=== PATIENT | female | born 1980 | race Caucasian/White ===

== ENCOUNTER → 2016-11-06 | Emergency (ER) | payer OTHER ==
[~2016-11-06] VITALS: Ht 170.1 cm; Wt 113.4 kg
[~2016-11-06] MED LIST: AORACILLIN B500 MG PO; ATARAX25 MG PO; BACTRIM DS 8001 TA1 PO; BENICAR40 MG PO; BUSPAR5 MG PO; CALCIUM1 CAP; CELEXA20 MG PO; CLARITIN10 MG PO; COLACE100 MG PO; FEOSOL45 MG; HYDROCODONE BIT1 T11 PO; IRON325 M1 PO; LASIX20 MG PO; LEVAQUIN750 M1 PO; LEXAPRO20 MG PO; LYSINYL500 MG PO; MEDROL DOSEPAK4 MG PO; MOTRIN800 MG PO; MULTIVITAMIN1 TA1 PO; NAPROSYN500 MG PO; PERCOCET 325 MG1 TA2 PO; PREDNISONE10 MG PO; PRENATAL1 TA1; PRILOSEC20 MG PO; PROAIR HFA8.5 GM INH; ROBITUSSIN AC 110 ML PO; TAGAMET300 MG PO; TESSALON PERLE100 M1 PO; ULTRAM50 MG PO; VITAMIN B COMPL1 CAP PO; ZITHROMAX250 MG PO
== END ==
LOC: ED 11:25
DX: S46.911A Strain of unspecified muscle, fascia and tendon at shoulder and upper arm level, right arm, initial encounter (principal); S80.01XA Contusion of right knee, initial encounter; F17.200 Nicotine dependence, unspecified, uncomplicated; Z88.0 Allergy status to penicillin; Z79.899 Other long term (current) drug therapy; W18.09XA Striking against other object with subsequent fall, initial encounter; Y93.89 Activity, other specified; Y92.89 Other specified places as the place of occurrence of the external cause; Y99.8 Other external cause status

== ENCOUNTER 2017-05-21 08:42 | Emergency (ER) | payer OTHER ==
[~2017-05-21] VITALS: Wt 108.9 kg
[2017-05-21] MEDS ORDERED: PREDNISONE50 MG PO (08:53)
[2017-05-21] MEDS ORDERED: AVPAK AZITHROM250 MG PO (08:53)
== END 2017-05-21 08:54 | disposition home or self-care (01) ==
LOC: ED 08:42
DX: J44.1 Chronic obstructive pulmonary disease with (acute) exacerbation (principal); R21 Rash and other nonspecific skin eruption; E66.9 Obesity, unspecified; F17.200 Nicotine dependence, unspecified, uncomplicated; Z79.899 Other long term (current) drug therapy; Z88.0 Allergy status to penicillin; Z87.01 Personal history of pneumonia (recurrent)

== ENCOUNTER 2017-06-06 12:32 | Emergency (ER) | payer OTHER ==
[~2017-06-06] VITALS: Ht 170.1 cm; Wt 108.9 kg
[~2017-06-06 12:32] MED LIST changes: +AVPAK AZITHROM250 MG PO; +PREDNISONE50 MG PO
[2017-06-06 13:15] LABS: BASO % 0.4 % (0.0-1.0); EOS # 0.4 10*3/uL (0.0-0.4); EOS % 3.7 % (1.0-4.0); HEMOGLOBIN 12.6 g/dl (12.0-16.0); LYMPH # 2.4 10*3/uL (1.3-4.4); LYMPH % 25.5 % (27.0-41.0); MEAN CELL VOLUME 90.7 fl (81.0-99.0); MEAN CORPUSCULAR HGB 28.6 pg (27.0-31.0); MEAN CORPUSCULAR HGB CONC 31.5 g/dl (33.0-37.0); MONO # 0.6 10*3/uL (0.1-1.0); MONO % 6.4 % (3.0-9.0); NEUT # 6.1 10*3/uL (2.3-7.9); NEUT % 63.7 % (47.0-73.0); PLATELET COUNT AUTOMATED 286 10*3/uL (130-400); RED BLOOD COUNT 4.41 10*6/uL (4.10-5.10); RED CELL DISTRI WIDTH 16.5 % (0-14.5); WHITE BLOOD COUNT 9.5 10*3/uL (4.8-10.8)
[2017-06-06 13:29] LABS: ACT PARTIAL THROMBO TIME 26.7 SECONDS (20.8-31.5); INTERNATIONAL NORM RATIO 0.9 (2.0-3.5)
[2017-06-06 13:33] LABS: ALBUMIN 3.7 gm/dl (3.1-4.5); ALKALINE PHOSPHATASE 124 U/L (45-117); BUN 7 mg/dl (7-24); CHLORIDE 107 mmol/L (98-107); CREATININE 0.83 mg/dL (0.55-1.02); POTASSIUM 3.9 mmol/L (3.5-5.1); SGOT/AST 29 IU/L (3-35); SGPT/ALT 31 U/L (12-78); SODIUM 139 mmol/L (136-145); TOTAL PROTEIN 7.2 gm/dL (6.4-8.2)
[2017-06-06 13:34] LABS: TROPONIN I < 0.015 ng/ml (<0.045)
== END 2017-06-06 16:06 | disposition home or self-care (01) ==
LOC: ED 12:32
PROVIDERS: Nurse Practitioner Family
DX: R07.9 Chest pain, unspecified (principal); J44.9 Chronic obstructive pulmonary disease, unspecified; F17.200 Nicotine dependence, unspecified, uncomplicated; Z79.899 Other long term (current) drug therapy; Z88.0 Allergy status to penicillin

== ENCOUNTER 2020-11-19 17:51 | Emergency (ER) | payer OTHER ==
[~2020-11-19] VITALS: Ht 170.1 cm; Wt 113.4 kg
== END 2020-11-19 22:20 | disposition home or self-care (01) ==
LOC: ED 17:51
DX: G43.909 Migraine, unspecified, not intractable, without status migrainosus (principal); I10 Essential (primary) hypertension; K21.9 Gastro-esophageal reflux disease without esophagitis; F41.9 Anxiety disorder, unspecified; F32.9 Major depressive disorder, single episode, unspecified; F17.200 Nicotine dependence, unspecified, uncomplicated; Z88.0 Allergy status to penicillin; Z88.8 Allergy status to other drugs, medicaments and biological substances

== ENCOUNTER 2021-08-21 15:58 | Inpatient (IN) | payer OTHER ==
[~2021-08-21] VITALS: Ht 170.2 cm; Wt 125.8 kg
[2021-08-21 16:04] VITALS: BP 137/97
[2021-08-21 16:39] LABS: BASO % 0.3 % (0.0-1.0); EOS # 0.5 10*3/uL (0.0-0.4); HEMATOCRIT 42.1 % (37.0-47.0); LYMPH # 1.5 10*3/uL (1.3-4.4); LYMPH % 15.4 % (27.0-41.0); MEAN CELL VOLUME 100.2 fl (81.0-99.0); MEAN CORPUSCULAR HGB 32.6 pg (27.0-31.0); MEAN CORPUSCULAR HGB CONC 32.5 g/dl (33.0-37.0); MEAN PLATELET VOLUME 9.4 fl (9.6-12.3); MONO # 0.7 10*3/uL (0.1-1.0); MONO % 7.6 % (3.0-9.0); NEUT % 71.5 % (47.0-73.0); PLATELET COUNT AUTOMATED 269 10*3/uL (130-400); RED CELL DISTRI WIDTH 16.5 % (0-14.5); WHITE BLOOD COUNT 9.8 10*3/uL (4.8-10.8)
[2021-08-21 16:56] LABS: ALKALINE PHOSPHATASE 168 U/L (45-117); BUN 8 mg/dl (7-24); CHLORIDE 111 mmol/L (98-107); CREATININE 0.74 mg/dL (0.55-1.02); LIPASE 228 U/L (73-393); POTASSIUM 3.7 mmol/L (3.5-5.1); SGOT/AST 22 IU/L (3-35); SGPT/ALT 18 U/L (12-78); SODIUM 140 mmol/L (136-145); TOTAL PROTEIN 5.9 gm/dL (6.4-8.2)
[2021-08-21 17:10] LABS: BILIRUBIN Negative (Negative); BLOOD 3+ (Negative); CLARITY Cloudy (Clear); COLOR Yellow (Yellow); GLUCOSE Negative (Negative); KETONE Trace (Negative); LEUKO ESTERASE 1+ (Negative); NITRITE Negative (Negative); SPECIFIC GRAVITY 1.025 (1.001-1.030)
[2021-08-21 17:20] LABS: BACTERIA 3+; EPITHELIAL CELLS 21-30; RBC 16-20 rbc/hpf (0-2); WBC 16-20 wbc/hpf (0-5)
[2021-08-21] MEDS ORDERED: VISTARIL25 MG PO (21:20)
[2021-08-21 21:23] VITALS: BP 120/69
[2021-08-22 01:55] VITALS: BP 125/75
[2021-08-22 06:13] LABS: BASO % 0.3 % (0.0-1.0); EOS # 0.5 10*3/uL (0.0-0.4); EOS % 6.5 % (1.0-4.0); HEMATOCRIT 39.1 % (37.0-47.0); LYMPH # 1.9 10*3/uL (1.3-4.4); LYMPH % 24.5 % (27.0-41.0); MEAN CELL VOLUME 102.9 fl (81.0-99.0); MEAN CORPUSCULAR HGB 33.2 pg (27.0-31.0); MEAN CORPUSCULAR HGB CONC 32.2 g/dl (33.0-37.0); MEAN PLATELET VOLUME 10.1 fl (9.6-12.3); MONO # 0.6 10*3/uL (0.1-1.0); MONO % 8.2 % (3.0-9.0); NEUT # 4.7 10*3/uL (2.3-7.9); NEUT % 60.1 % (47.0-73.0); PLATELET COUNT AUTOMATED 244 10*3/uL (130-400); RED CELL DISTRI WIDTH 16.6 % (0-14.5); WHITE BLOOD COUNT 7.8 10*3/uL (4.8-10.8)
[2021-08-22 06:19] LABS: BUN 9 mg/dl (7-24); CHLORIDE 113 mmol/L (98-107); POTASSIUM 3.8 mmol/L (3.5-5.1); SGOT/AST 24 IU/L (3-35); SGPT/ALT 17 U/L (12-78); SODIUM 142 mmol/L (136-145)
[2021-08-22 06:35] LABS: ALKALINE PHOSPHATASE 148 U/L (45-117); CHOLESTEROL 110 mg/dL (<200); CREATININE 0.74 mg/dL (0.55-1.02); LDL CHOLESTEROL 43 mg/dL (9-159); TOTAL PROTEIN 5.2 gm/dL (6.4-8.2); TRIGLYCERIDES 62 mg/dl (<150)
[2021-08-22 08:00] VITALS: BP 117/60
[2021-08-22 12:00] VITALS: BP 96/52
[2021-08-22 16:00] VITALS: BP 103/58
[2021-08-22 20:00] VITALS: BP 110/54
[2021-08-23] VITALS: BP 100/54
[2021-08-23 06:23] LABS: BUN 6 mg/dl (7-24); CHLORIDE 112 mmol/L (98-107); POTASSIUM 3.5 mmol/L (3.5-5.1); SODIUM 137 mmol/L (136-145)
[2021-08-23 06:27] LABS: ALKALINE PHOSPHATASE 160 U/L (45-117); BASO % 0.5 % (0.0-1.0); CREATININE 0.57 mg/dL (0.55-1.02); EOS # 0.5 10*3/uL (0.0-0.4); EOS % 5.8 % (1.0-4.0); HEMATOCRIT 40.7 % (37.0-47.0); LYMPH # 1.9 10*3/uL (1.3-4.4); LYMPH % 22.9 % (27.0-41.0); MEAN CELL VOLUME 101.5 fl (81.0-99.0); MEAN CORPUSCULAR HGB 32.4 pg (27.0-31.0); MEAN CORPUSCULAR HGB CONC 31.9 g/dl (33.0-37.0); MEAN PLATELET VOLUME 10.1 fl (9.6-12.3); MONO # 0.7 10*3/uL (0.1-1.0); MONO % 8.7 % (3.0-9.0); NEUT # 5.2 10*3/uL (2.3-7.9); NEUT % 61.9 % (47.0-73.0); PLATELET COUNT AUTOMATED 292 10*3/uL (130-400); RED BLOOD COUNT 4.01 10*6/uL (4.10-5.10); RED CELL DISTRI WIDTH 16.4 % (0-14.5); SGOT/AST 14 IU/L (3-35); SGPT/ALT 15 U/L (12-78); TOTAL PROTEIN 5.8 gm/dL (6.4-8.2); WHITE BLOOD COUNT 8.4 10*3/uL (4.8-10.8)
[2021-08-23 08:00] VITALS: BP 112/68
[2021-08-23 12:00] VITALS: BP 128/76
[2021-08-23] MEDS ORDERED: HYDROCODONE-AC1 EAC1 PO (15:12)
== END 2021-08-23 15:55 | disposition home or self-care (01) | DRG 438 ==
LOC: ED 15:58 → EDHOLD 21:12 → 5E 21:12
PROVIDERS: Internal Medicine; Physician Assistant; Student in an Organized Health Care Education/Training Program; ADMIT Internal Medicine; ATTEND Internal Medicine
DX: K85.90 Acute pancreatitis without necrosis or infection, unspecified (principal); E43 Unspecified severe protein-calorie malnutrition; Z68.41 Body mass index [BMI] 40.0-44.9, adult; F41.9 Anxiety disorder, unspecified; E87.8 Other disorders of electrolyte and fluid balance, not elsewhere classified; K21.9 Gastro-esophageal reflux disease without esophagitis; F17.210 Nicotine dependence, cigarettes, uncomplicated; J45.20 Mild intermittent asthma, uncomplicated; I10 Essential (primary) hypertension; F32.A Depression, unspecified; Z88.0 Allergy status to penicillin; Z79.899 Other long term (current) drug therapy; Z98.891 History of uterine scar from previous surgery; Z82.49 Family history of ischemic heart disease and other diseases of the circulatory system; Z80.3 Family history of malignant neoplasm of breast; Z82.0 Family history of epilepsy and other diseases of the nervous system; Z79.51 Long term (current) use of inhaled steroids; Z72.89 Other problems related to lifestyle

== ENCOUNTER → 2021-09-28 | Outpatient (CLI) | payer OTHER ==
[~2021-09-28] MED LIST changes: +HYDROCODONE-AC1 EAC1 PO; +VISTARIL25 MG PO
== END | disposition home or self-care (01) ==
LOC: US 09-14 15:00
PROVIDERS: ATTEND Nurse Practitioner Women's Health
DX: N93.9 Abnormal uterine and vaginal bleeding, unspecified (principal)

== ENCOUNTER 2022-11-28 09:26 | Inpatient (IN) | payer OTHER ==
[~2022-11-28] VITALS: Ht 170.1 cm; Wt 117.9 kg
[~2022-11-28 09:26] MED LIST changes: +BENICAR20 MG PO; -BENICAR40 MG PO
[2022-11-28 09:39] VITALS: BP 115/59
[2022-11-28 10:21] LABS: HEMATOCRIT 37.7 % (37.0-47.0); MEAN CELL VOLUME 109.6 fl (81.0-99.0); MEAN CORPUSCULAR HGB 36.3 pg (27.0-31.0); MEAN CORPUSCULAR HGB CONC 33.2 g/dl (33.0-37.0); MEAN PLATELET VOLUME 9.8 fl (9.6-12.3); PLATELET COUNT AUTOMATED 285 10*3/uL (130-400); RED BLOOD COUNT 3.44 10*6/uL (4.10-5.10); RED CELL DISTRI WIDTH 20.4 % (0-14.5); WHITE BLOOD COUNT 15.8 10*3/uL (4.8-10.8)
[2022-11-28 10:23] LABS: MANUAL DIFF REFLEX YES
[2022-11-28 10:32] LABS: ACT PARTIAL THROMBO TIME 30.8 SECONDS (20.0-32.1); INTERNATIONAL NORM RATIO 1.1 (2.0-3.5)
[2022-11-28 10:43] LABS: BASOPHILS 1 % (0-1); TOTAL CELLS COUNTED 100 #CELLS
[2022-11-28 10:44] LABS: ALKALINE PHOSPHATASE 135 U/L (46-116); BETA-HCG, QUANT < 3.0 mIU/mL (3-10); BUN 6 mg/dl (9-23); CHLORIDE 106 mmol/L (98-107); LIPASE 19 U/L (12-53); PLATELET SUFFICIENCY NORMAL (NORMAL); POTASSIUM 3.8 mmol/L (3.4-5.1); SGPT/ALT < 7 U/L (10-49); TOTAL PROTEIN 6.3 gm/dL (6.0-8.0)
[2022-11-28] MEDS ORDERED: DULERA 100 MCG-13 GM INH (12:15)
[2022-11-28 13:15] VITALS: BP 120/60
[2022-11-28 16:00] VITALS: BP 101/48
[2022-11-28 20:00] VITALS: BP 110/62
[2022-11-29] VITALS: BP 110/56
[2022-11-29 07:05] LABS: HEMATOCRIT 35.1 % (37.0-47.0); MEAN CELL VOLUME 110.4 fl (81.0-99.0); MEAN CORPUSCULAR HGB 36.5 pg (27.0-31.0); MEAN PLATELET VOLUME 9.4 fl (9.6-12.3); PLATELET COUNT AUTOMATED 256 10*3/uL (130-400); RED BLOOD COUNT 3.18 10*6/uL (4.10-5.10); RED CELL DISTRI WIDTH 19.9 % (0-14.5); WHITE BLOOD COUNT 16.7 10*3/uL (4.8-10.8)
[2022-11-29 07:23] LABS: MANUAL DIFF REFLEX YES
[2022-11-29 07:31] LABS: ALKALINE PHOSPHATASE 156 U/L (46-116); BUN 11 mg/dl (9-23); CHLORIDE 104 mmol/L (98-107); POTASSIUM 3.9 mmol/L (3.4-5.1); TOTAL PROTEIN 5.9 gm/dL (6.0-8.0)
[2022-11-29 07:34] LABS: SGPT/ALT < 7 U/L (10-49)
[2022-11-29 08:00] VITALS: BP 112/69
[2022-11-29 08:06] LABS: TOTAL CELLS COUNTED 100 #CELLS
[2022-11-29 08:07] LABS: PLATELET SUFFICIENCY NORMAL (NORMAL)
[2022-11-29 12:00] VITALS: BP 104/54
[2022-11-29 16:00] VITALS: BP 106/59
[2022-11-29 20:00] VITALS: BP 118/62
[2022-11-30] VITALS (9 sets, daily range): BP systolic 90–122; BP diastolic 43–67
[2022-11-30 08:11] LABS: HEMATOCRIT 33.1 % (37.0-47.0); MEAN CELL VOLUME 111.1 fl (81.0-99.0); MEAN CORPUSCULAR HGB 35.9 pg (27.0-31.0); MEAN CORPUSCULAR HGB CONC 32.3 g/dl (33.0-37.0); MEAN PLATELET VOLUME 9.7 fl (9.6-12.3); PLATELET COUNT AUTOMATED 275 10*3/uL (130-400); RED BLOOD COUNT 2.98 10*6/uL (4.10-5.10); RED CELL DISTRI WIDTH 19.8 % (0-14.5)
[2022-11-30 08:15] LABS: MANUAL DIFF REFLEX YES
[2022-11-30 08:35] LABS: PLATELET SUFFICIENCY NORMAL (NORMAL); POLYCHROMASIA SLIGHT; TARGET CELLS FEW; TOTAL CELLS COUNTED 100 #CELLS
[2022-12-01] VITALS: BP 117/59
[2022-12-01 07:42] LABS: HEMATOCRIT 32.3 % (37.0-47.0); MEAN CELL VOLUME 109.5 fl (81.0-99.0); MEAN CORPUSCULAR HGB 36.6 pg (27.0-31.0); MEAN CORPUSCULAR HGB CONC 33.4 g/dl (33.0-37.0); MEAN PLATELET VOLUME 9.5 fl (9.6-12.3); PLATELET COUNT AUTOMATED 332 10*3/uL (130-400); RED BLOOD COUNT 2.95 10*6/uL (4.10-5.10); RED CELL DISTRI WIDTH 19.6 % (0-14.5); WHITE BLOOD COUNT 9.3 10*3/uL (4.8-10.8)
[2022-12-01 07:44] LABS: MANUAL DIFF REFLEX YES
[2022-12-01 08:00] VITALS: BP 118/61
[2022-12-01 08:11] LABS: POLYCHROMASIA SLIGHT; TOTAL CELLS COUNTED 100 #CELLS; TOXIC GRANULATION SLIGHT
[2022-12-01 08:12] LABS: BURR CELLS FEW; OVALOCYTES FEW; PLATELET SUFFICIENCY NORMAL (NORMAL); TARGET CELLS FEW
[2022-12-01 08:13] LABS: ALKALINE PHOSPHATASE 229 U/L (46-116); BUN 9 mg/dl (9-23); CHLORIDE 108 mmol/L (98-107); POTASSIUM 3.9 mmol/L (3.4-5.1); SGPT/ALT 8 U/L (10-49); TOTAL PROTEIN 5.9 gm/dL (6.0-8.0)
[2022-12-01 12:00] VITALS: BP 115/57
[2022-12-01] MEDS ORDERED: PERCOCET 5-3251 EACH PO (12:05)
[2022-12-01] MEDS ORDERED: SEPTDS PO (12:05)
== END 2022-12-01 16:19 | disposition home or self-care (01) | DRG 872 ==
LOC: ED 09:26 → EDHOLD 12:01 → 5E 12:01 → EDHOLD 12:02 → 5E 13:13
PROVIDERS: Emergency Medicine; Internal Medicine; Student in an Organized Health Care Education/Training Program; ADMIT Internal Medicine; ATTEND Internal Medicine
PROC: 0H95XZZ Drainage of Chest Skin, External Approach (ICD-10-PCS; principal; 2022-11-28)
PROC: 0H9T3ZZ Drainage of Right Breast, Percutaneous Approach (ICD-10-PCS; 2022-11-30)
DX: A41.9 Sepsis, unspecified organism (principal); Z68.41 Body mass index [BMI] 40.0-44.9, adult; F17.210 Nicotine dependence, cigarettes, uncomplicated; Z82.49 Family history of ischemic heart disease and other diseases of the circulatory system; N61.1 Abscess of the breast and nipple; I10 Essential (primary) hypertension; F41.1 Generalized anxiety disorder; J45.909 Unspecified asthma, uncomplicated; F32.9 Major depressive disorder, single episode, unspecified; R73.9 Hyperglycemia, unspecified; R74.8 Abnormal levels of other serum enzymes; E66.01 Morbid (severe) obesity due to excess calories; K21.9 Gastro-esophageal reflux disease without esophagitis; S21.001A Unspecified open wound of right breast, initial encounter; X58.XXXA Exposure to other specified factors, initial encounter; Y93.89 Activity, other specified; Z88.0 Allergy status to penicillin; Z81.8 Family history of other mental and behavioral disorders; Z80.3 Family history of malignant neoplasm of breast; Y92.89 Other specified places as the place of occurrence of the external cause; Y99.8 Other external cause status

== ENCOUNTER → 2022-12-05 | Outpatient (CLI) | payer OTHER ==
[~2022-12-05] MED LIST changes: +DULERA 100 MCG-13 GM INH; +PERCOCET 5-3251 EACH PO; +SEPTDS PO
== END | disposition home or self-care (01) ==
LOC: WOUNDCARE 07:02
PROVIDERS: ATTEND Nurse Practitioner Family
DX: N61.1 Abscess of the breast and nipple (principal); R73.9 Hyperglycemia, unspecified; L03.90 Cellulitis, unspecified; E66.01 Morbid (severe) obesity due to excess calories; I10 Essential (primary) hypertension; J45.909 Unspecified asthma, uncomplicated; K21.9 Gastro-esophageal reflux disease without esophagitis; F17.290 Nicotine dependence, other tobacco product, uncomplicated; F32.A Depression, unspecified; Z68.41 Body mass index [BMI] 40.0-44.9, adult

== ENCOUNTER → 2022-12-13 | Outpatient (CLI) | payer OTHER | END | disposition home or self-care (01) | LOC: WOUNDCARE 00:59 | PROVIDERS: ATTEND Nurse Practitioner Family | DX: N61.1 Abscess of the breast and nipple (principal); L03.90 Cellulitis, unspecified; R73.9 Hyperglycemia, unspecified; E66.01 Morbid (severe) obesity due to excess calories; J45.909 Unspecified asthma, uncomplicated; I10 Essential (primary) hypertension; K21.9 Gastro-esophageal reflux disease without esophagitis; F17.290 Nicotine dependence, other tobacco product, uncomplicated; F32.A Depression, unspecified; Z68.41 Body mass index [BMI] 40.0-44.9, adult ==

== ENCOUNTER 2023-07-01 12:40 | Emergency (ER) | payer OTHER ==
[~2023-07-01] VITALS: Ht 170.1 cm; Wt 113.4 kg
[2023-07-01 13:47] LABS: HEMATOCRIT 31.9 % (37.0-47.0); MANUAL DIFF REFLEX YES; MEAN CELL VOLUME 120.8 fl (81.0-99.0); MEAN CORPUSCULAR HGB CONC 32.3 g/dl (33.0-37.0); MEAN PLATELET VOLUME 9.2 fl (9.6-12.3); PLATELET COUNT AUTOMATED 400 10*3/uL (130-400); RED BLOOD COUNT 2.64 10*6/uL (4.10-5.10); RED CELL DISTRI WIDTH 16.7 % (0-14.5); WHITE BLOOD COUNT 12.1 10*3/uL (4.8-10.8)
[2023-07-01 14:08] LABS: PLATELET SUFFICIENCY NORMAL (NORMAL); POLYCHROMASIA SLIGHT; STOMATOCYTE FEW; TOTAL CELLS COUNTED 100 #CELLS
[2023-07-01 14:09] LABS: SPHEROCYTES FEW
[2023-07-01 14:23] LABS: ALKALINE PHOSPHATASE 134 U/L (46-116); BUN 7 mg/dl (9-23); CHLORIDE 101 mmol/L (98-107); SGPT/ALT < 7 U/L (5-49); TOTAL PROTEIN 6.5 gm/dL (6.0-8.0)
[2023-07-01] MEDS ORDERED: CEPHALEXIN500 M1 PO (14:46)
[2023-07-01] MEDS ORDERED: VIBRAMYCIN100 MG PO (14:46)
== END 2023-07-01 14:53 | disposition home or self-care (01) ==
LOC: ED 12:40
PROVIDERS: Physician Assistant Medical
DX: L02.412 Cutaneous abscess of left axilla (principal); I10 Essential (primary) hypertension; K21.9 Gastro-esophageal reflux disease without esophagitis; F41.9 Anxiety disorder, unspecified; F32.A Depression, unspecified; Z88.0 Allergy status to penicillin; Z88.2 Allergy status to sulfonamides; Z98.890 Other specified postprocedural states; Z90.89 Acquired absence of other organs; F17.200 Nicotine dependence, unspecified, uncomplicated

== ENCOUNTER → 2023-07-03 | Outpatient (CLI) | payer OTHER ==
[~2023-07-03] MED LIST changes: +CEPHALEXIN500 M1 PO; +VIBRAMYCIN100 MG PO
== END | disposition home or self-care (01) ==
LOC: WOUNDCARE 02:40
PROVIDERS: ATTEND Nurse Practitioner Family
DX: L02.412 Cutaneous abscess of left axilla (principal); L03.90 Cellulitis, unspecified; D72.829 Elevated white blood cell count, unspecified; R73.9 Hyperglycemia, unspecified; E66.01 Morbid (severe) obesity due to excess calories; F41.1 Generalized anxiety disorder; I10 Essential (primary) hypertension; J45.909 Unspecified asthma, uncomplicated; F32.A Depression, unspecified; F17.210 Nicotine dependence, cigarettes, uncomplicated; Z79.899 Other long term (current) drug therapy; Z68.41 Body mass index [BMI] 40.0-44.9, adult

== ENCOUNTER 2024-05-13 19:42 | Emergency (ER) | payer OTHER ==
[~2024-05-13] VITALS: Ht 170.1 cm; Wt 113.9 kg
[2024-05-13 20:11] LABS: HEMATOCRIT 42.2 % (37.0-47.0); MEAN CELL VOLUME 118.9 fl (81.0-99.0); MEAN CORPUSCULAR HGB 38.9 pg (27.0-31.0); MEAN CORPUSCULAR HGB CONC 32.7 g/dl (33.0-37.0); MEAN PLATELET VOLUME 10.2 fl (9.6-12.3); PLATELET COUNT AUTOMATED 293 10*3/uL (130-400); RED BLOOD COUNT 3.55 10*6/uL (4.10-5.10); RED CELL DISTRI WIDTH 16.1 % (0-14.5); WHITE BLOOD COUNT 8.9 10*3/uL (4.8-10.8)
[2024-05-13 20:12] LABS: MANUAL DIFF REFLEX YES
[2024-05-13 20:32] LABS: ALKALINE PHOSPHATASE 127 U/L (46-116); BUN 6 mg/dl (9-23); CHLORIDE 103 mmol/L (98-107); POTASSIUM 3.7 mmol/L (3.4-5.1); SGPT/ALT 9 U/L (5-49); TOTAL PROTEIN 6.7 gm/dL (6.0-8.0)
[2024-05-13 20:48] LABS: BASOPHILS 1 % (0-1); PLATELET SUFFICIENCY NORMAL (NORMAL); TOTAL CELLS COUNTED 100 #CELLS
[2024-05-13] MEDS ORDERED: LORazepam 1 MG TAB PO ONE (21:10)
== END 2024-05-13 22:45 | disposition home or self-care (01) ==
LOC: ED 19:42
PROVIDERS: Internal Medicine
DX: F41.9 Anxiety disorder, unspecified (principal); D75.89 Other specified diseases of blood and blood-forming organs; E44.1 Mild protein-calorie malnutrition; E66.9 Obesity, unspecified; F17.200 Nicotine dependence, unspecified, uncomplicated; Z88.0 Allergy status to penicillin; Z88.2 Allergy status to sulfonamides; Z79.899 Other long term (current) drug therapy; Z98.890 Other specified postprocedural states; Z90.89 Acquired absence of other organs; Z68.30 Body mass index [BMI] 30.0-30.9, adult

== ENCOUNTER 2024-09-01 09:23 | Emergency (ER) | payer OTHER, MEDICAID ==
[~2024-09-01] VITALS: Ht 170.1 cm; Wt 115.7 kg
[2024-09-01] MEDS ORDERED: CLINDAMYCIN HC300 MG PO (09:47)
[2024-09-01] MEDS ORDERED: Acetaminophen/Hydrocodone 5 MG/325 MG TABLET PO ONE (09:50)
== END 2024-09-01 10:00 | disposition home or self-care (01) ==
LOC: ED 09:23
DX: N61.1 Abscess of the breast and nipple (principal); L02.411 Cutaneous abscess of right axilla; I10 Essential (primary) hypertension; K21.9 Gastro-esophageal reflux disease without esophagitis; F32.A Depression, unspecified; F41.9 Anxiety disorder, unspecified; F17.200 Nicotine dependence, unspecified, uncomplicated; Z79.899 Other long term (current) drug therapy; Z88.1 Allergy status to other antibiotic agents; Z88.2 Allergy status to sulfonamides; Z90.89 Acquired absence of other organs; Z98.890 Other specified postprocedural states

== ENCOUNTER 2024-10-03 10:43 | Emergency (ER) | payer OTHER, MEDICAID ==
[~2024-10-03] VITALS: Ht 170.1 cm; Wt 113.4 kg
[~2024-10-03 10:43] MED LIST changes: +CLINDAMYCIN HC300 MG PO
[2024-10-03] MEDS ORDERED: ASPIRIN, CHEWABLE 81 MG TAB PO ONE (10:50)
[2024-10-03] MEDS ORDERED: LORazepam 0.5 MG TAB PO ONE (10:55)
[2024-10-03 11:11] LABS: HEMATOCRIT 36.2 % (37.0-47.0); MEAN CELL VOLUME 113.1 fl (81.0-99.0); MEAN CORPUSCULAR HGB 37.2 pg (27.0-31.0); MEAN CORPUSCULAR HGB CONC 32.9 g/dl (33.0-37.0); MEAN PLATELET VOLUME 9.6 fl (9.6-12.3); PLATELET COUNT AUTOMATED 284 10*3/uL (130-400); RED CELL DISTRI WIDTH 15.1 % (0-14.5); WHITE BLOOD COUNT 8.4 10*3/uL (4.8-10.8)
[2024-10-03 11:12] LABS: MANUAL DIFF REFLEX YES
[2024-10-03 11:21] LABS: ACT PARTIAL THROMBO TIME 27.9 SECONDS (20.0-32.1)
[2024-10-03 11:29] LABS: TOTAL CELLS COUNTED 100 #CELLS
[2024-10-03 11:30] LABS: BUN 7 mg/dl (9-23); CHLORIDE 105 mmol/L (98-107); LIPASE 19 U/L (12-53); OVALOCYTES FEW; PLATELET SUFFICIENCY NORMAL (NORMAL); POLYCHROMASIA SLIGHT; POTASSIUM 3.4 mmol/L (3.4-5.1)
== END 2024-10-03 13:33 | disposition home or self-care (01) ==
LOC: ED 10:43
PROVIDERS: Internal Medicine
DX: R07.89 Other chest pain (principal); Z88.0 Allergy status to penicillin; Z88.2 Allergy status to sulfonamides; Z79.899 Other long term (current) drug therapy; Z98.890 Other specified postprocedural states; Z90.89 Acquired absence of other organs; Z87.891 Personal history of nicotine dependence